=== PATIENT | male | born 1995 | race African-American/Black ===

== ENCOUNTER 2023-03-14 23:15 | Emergency (ER) | payer OTHER ==
[~2023-03-14] VITALS: Ht 188 cm; Wt 68.0 kg
[2023-03-14 23:22] VITALS: BP 130/60; PULSE 67; RESP 16; TEMP 97.7; O2SAT 100
[2023-03-15] MEDS ORDERED: NAPR-54 PO (01:00)
[2023-03-15] MEDS ORDERED: PENI500T20 PO (01:00)
[2023-03-15] MEDS ORDERED: HYDROcodone/APAP 5/325 MG 1 TAB TAB PO ONE (01:00)
== END 2023-03-15 01:11 | disposition home or self-care (01) ==
LOC: MED 23:15
DX: K08.89 Other specified disorders of teeth and supporting structures (principal); Z79.1 Long term (current) use of non-steroidal anti-inflammatories (NSAID); Z79.2 Long term (current) use of antibiotics
CPT/HCPCS: 99283